=== PATIENT | male | born 1940 | race Caucasian/White ===

== ENCOUNTER → 2018-07-15 | Outpatient (CLI) | payer MEDICARE, BC ==
[~2018-07-15] MED LIST: ALENDRONATE SOD70 M1 PO; ALLOPURINOL300 MG PO; ASPI81EC86 PO; ASPIRIN 32325 MG/TAB PO; ASPIRIN E.C. 8181 MG PO; CALCIUM + D 6001 TA1 PO; CALTRATE-600 W600 MG PO; COLACE 100100 MG/CAP PO; COREG 25MG25 MG/TAB PO; DDAVP 0.01% NASA5 ML NS; DEPO-TESTOS100 MG/ML IM; DEPO-TESTOS200 MG/M1 IM; DESMOPRESSIN INH; DYAZIDE 25 MG-31 CAP PO; FOSAMAX 70MG TA70 MG PO; HYDROCORTISONE5 M1 PO; HYDROCORTISONE5 MG PO; HYGROTON25 MG PO; KLOR-CON 1010 MEQ PO; LEVOTHROID0.088 MG PO; LEVOTHYROXIN0.088 MG PO; LIPITOR 10MG10 MG PO; LIPITOR20 MG PO; LISINOPRIL10 MG PO; PLAVIX 75MG TAB75 MG PO; SLO NIACIN500 MG PO; TYLENOL 500MG500 MG PO; ZESTRIL40 MG PO; ZOCOR 40MG40 MG PO
== END ==
LOC: COL.VAS 07:43
DX: I74.5 Embolism and thrombosis of iliac artery (principal); I74.3 Embolism and thrombosis of arteries of the lower extremities

== ENCOUNTER → 2019-04-27 | Outpatient (CLI) | payer MEDICARE, BC | LOC: COL.VAS 14:14 | DX: I65.29 Occlusion and stenosis of unspecified carotid artery (principal) ==

== ENCOUNTER → 2020-05-12 | Outpatient (CLI) | payer MEDICARE, BC ==
[~2020-05-12] VITALS: Ht 177.8 cm; Wt 87.8 kg
[~2020-05-12] MED LIST changes: +ASPIRIN 81M81 MG/TA2 PO; +B-121000 MCG PO; +CALCIUM 600/VIT1 CA1 PO; +CORTEF 10MG TAB10 MG PO; +CORTEF5 MG PO; +FLAXSEED OIL1000 MG PO; +HYGROTON 2525 MG/TAB PO; +KLOR-CON SPRIN10 MEQ PO; +MASON NATURAL2000 IU PO; +SYNTHROID0.088 MG/T PO; +ZYLOPRIM 300MG300 MG PO
[2020-05-12 08:51] VITALS: BP 150/66; PULSE 65
[2020-05-12 10:13] VITALS: BP 121/62; PULSE 59
[2020-05-12 10:38] LABS: PLEURAL FLUID RBC 2340000 /mm3 (0-0); PLEURAL FLUID WBC 1642 /mm3
[2020-05-12 10:46] LABS: GLUCOSE,PLEURAL FLUID 62 mg/dL; TOTAL PROTEIN,PLEURAL FLUID 3.7 gm/dL
[2020-05-12 10:47] LABS: PLEURAL FLUID APPEARANCE CLOUDY; PLEURAL FLUID COLOR RED
== END ==
LOC: COL.RAD 08:15
PROVIDERS: Internal Medicine
DX: J90 Pleural effusion, not elsewhere classified (principal)